=== PATIENT | female | born 1990 | race Caucasian/White ===

== ENCOUNTER 2016-12-14 23:20 | Inpatient (IN) | payer OTHER ==
[~2016-12-14] VITALS: Ht 154.9 cm; Wt 65.9 kg
[~2016-12-14 23:20] MED LIST: PREN1TAB62
[2016-12-14 23:57] VITALS: BP 120/76; PULSE 77; RESP 18
[2016-12-15] MEDS ORDERED: FERR325C PO
[2016-12-15] MEDS ORDERED: LACTATED RINGER'S 1,000 ML IV SCH (00:01)
[2016-12-15 00:30] VITALS: Ht 154.9 cm; Wt 65.9 kg
[2016-12-15] MEDS ORDERED: HYDROCODONE/APAP (5/325) TAB PO PRN ×2 (00:30→05:00)
[2016-12-15] MEDS ORDERED: OXYTOCIN 30 UNITS/LR 500 ML IV SCH ×2 (00:30)
[2016-12-15] MEDS ORDERED: LIDOCAINE 1% (MPF) 30 ML INJ INJ PRN (00:30)
[2016-12-15] MEDS ORDERED: LACTATED RINGER'S 1,000 ML IV PRN (00:30)
[2016-12-15] MEDS ORDERED: IBUPROFEN 600 MG TAB PO PRN (00:30)
[2016-12-15] MEDS ORDERED: OXYTOCIN 30 UNITS/LR 500 ML IV PRN ×3 (00:30→05:00)
[2016-12-15] MEDS ORDERED: MISOPROSTOL 200 MCG TAB PR PRN ×2 (00:30→05:00)
[2016-12-15] MEDS ORDERED: AMPICILLIN 2 GM/NS (PMX) 100 ML IV ONE (00:30)
[2016-12-15] MEDS ORDERED: METHYLERGONOVINE 0.2 MG INJ IM PRN ×2 (00:30→05:00)
[2016-12-15] MEDS ORDERED: BUTORPHANOL 2 MG INJ IV PRN ×2 (00:30)
[2016-12-15] MEDS ORDERED: CARBOPROST 250 MCG INJ IM PRN ×2 (00:30→05:00)
--- NOTE | 2016-12-15 00:46 | TRIAGE ---
OB Triage Datetime Report Generated by CPN: 12/15/2016 00:46 Datetime: 12/15/2016 23:52 Stage of : OB Triage Membrane Status: Ruptured Membranes Ruptured Date/Time: 12/14/2016 23:10 Membranes Rupture Method: Spontaneous Amniotic Fluid Color: Light Meconium Amniotic Fluid Amount: Moderate Amniotic Fluid Odor: None Datetime: 12/15/2016 00:45 Time of Arrival: 12/15/2016 00:30 EGA: 39.0 Arrived By: Stretcher Arrived From: OB triage Datetime: 12/15/2016 00:26 Stage of : OB Triage Labor Evaluation Frequency: 2-5 Monitor Mode: Palpation Duration (sec)2399: 40-70 Quality: Mild Resting Tone [place]: Relaxed Heart Rate FHR Baseline Rate: 150 Monitor Mode: External US Variability: Moderate 6-25 bpm Accelerations: 15X15 Decelerations: None; Variable Category: Category II Datetime: 12/14/2016 23:52 Membrane Status: Ruptured Datetime: 12/14/2016 23:49 Stage of : OB Triage Datetime: 12/14/2016 23:45 Assessment Type: Triage Maternal Assessment Level of Consciousness: Fully Conscious DTR's/Clonus: DTRs 2+; No Clonus Headache: Denies Blurred Vision: No Respiratory Effort: Unlabored Breath Sounds, Left: Clear and Equal Breath Sounds, Right: Clear and Equal Nausea/Vomiting: Denies RUQ Epigastric Pain: Denies Lower Extremities Edema: Bilateral Lower Extremities Degree: 1+ Upper Extremities Edema: None Degree: None Facial Edema: None Fall Risk Assessment History of Falling: (0) No Secondary Diagnosis: (15) Yes Ambulatory Aid: (0) Bedrest/Nurse Assist IV Therapy: (0) No Gait: (0) Normal/Bedrest/Immobile Mental Status: (0) Oriented to Own Ability Fall Score: 15 Fall Risk Score Definition: No Risk: No action required Datetime: 12/14/2016 23:43 Time of Arrival: 12/14/2016 23:18 EGA: 38.6 Arrived By: Wheelchair Arrived From: Home Chief Complaint: ROM@ 2110, [facility] SINCE 1899 Movement: Present Contractions: Regular Time Contractions Began: 12/14/2016 19:00 Contractions: Q 3-5 Rupture of Membranes: Ruptured Vaginal Bleeding: None Vaginal Discharge: Denies Recent Sexual Intercouse: Denies Abdominal Trauma: Not Applicable Patient Complaints: Contractions Initial Plan: VS, EFM, SVE, Datetime: 12/14/2016 23:39 Vaginal Exam Dilatation (cms): 3.5 Effacement (%): 50 Station: -2 Exam By: Shady HUERTAS Vaginal Bleeding: None Cervix, Consistency: Moderate Cervix, Position: Posterior Presentation 'A': Cephalic Datetime: 12/14/2016 23:33 Monitor Mode: External Contraction Comments: APPLIED Monitor Mode: External US Comments: APPLIED
[2016-12-15 01:26] LABS: BASOPHILS % 0.2 % (0.0-2.0); EOSINOPHILS # 0.1 10^3/ul (0.0-0.5); EOSINOPHILS % 0.3 % (0.0-7.0); HEMATOCRIT 39.9 % (37.0-47.0); HEMOGLOBIN 13.9 g/dl (12.0-16.0); LYMPHOCYTES # 2.8 10^3/ul (0.8-2.9); LYMPHOCYTES % 17.5 % (15.0-51.0); MEAN CORPUSCULAR HEMOGLOBIN 29.4 pg (29.0-33.0); MEAN CORPUSCULAR HGB CONC 34.8 g/dl (32.0-37.0); MEAN CORPUSCULAR VOLUME 84.4 fl (82.0-101.0); MEAN PLATELET VOLUME 11.2 fl (7.4-10.4); MONOCYTE # 1.1 10^3/ul (0.3-0.9); MONOCYTES % 6.9 % (0.0-11.0); NEUTROPHIL # 12.1 10^3/ul (1.6-7.5); NEUTROPHILS % 74.5 % (39.0-77.0); PLATELET COUNT 264 10^3/UL (140-415); RED BLOOD COUNT 4.73 10^6/ul (4.20-5.40); RED CELL DISTRIBUTION WIDTH 17.7 % (11.5-14.5); WHITE BLOOD COUNT 16.2 10^3/ul (4.8-10.8)
[2016-12-15 02:05] LABS: INR 0.89; PT RATIO 0.9
[2016-12-15 02:06] LABS: PARTIAL THROMBOPLASTIN TIME 23.9 Sec (25.0-35.0)
[2016-12-15] MEDS ORDERED: AMPICILLIN 1 GM/NS (PMX) 50 ML IV SCH (04:30)
[2016-12-15] MEDS: LACTATED RINGER'S 1,000 ML IV* SCH ×3 (04:35→20:35)
--- NOTE | 2016-12-15 04:35 | LDN ---
Date/Time of Note Date/Time of Note DATE: 12/15/16 TIME: 04:33 Delivery Summary I called for precipitous delivery. Patient had been manged during her anteparrum course by Dr. Waddell Placenta Delivered: Spontaneously Meconium: Thick Episiotomy: No Perineal laceration: 1 Laceration repair: first degree perineal lac, repaired using 3-0 chromic Anesthesia type: None Estimated blood loss: 100 Sponge & Needle done & correct: Yes All needle counts correct: Yes Any foreign bodies felt in the: No Problems: Infant Delivery Information Sex Infant Sex: male Apgars 1 Minute: 8 5 Minute: 9 Suctioning Nose & mouth suctioned at anamaria: Yes Delee suction performed: Yes Umbilical Cord Umbilical cord with: 3 Vessels Cord presentations: nuchal cord Nuchal cord present X: 1 Cord Blood was obtained: Yes JACQUE DIAZ MD Dec 15, 2016 04:35
[2016-12-15 05:00] VITALS: BP 117/81; RESP 18
[2016-12-15] MEDS ORDERED: LANOLIN 7 GM TUBE TOP PRN (05:00)
[2016-12-15] MEDS ORDERED: WITCH HAZEL/GLYCERIN PAD PR PRN (05:00)
[2016-12-15] MEDS ORDERED: ONDANSETRON 4 MG INJ IV PRN (05:00)
[2016-12-15] MEDS ORDERED: DIPHENHYDRAMINE 25 MG CAP PO PRN (05:00)
[2016-12-15] MEDS ORDERED: ZOLPIDEM 5 MG TAB PO PRN (05:00)
[2016-12-15] MEDS ORDERED: ACETAMINOPHEN 325 MG TAB PO PRN (05:00)
[2016-12-15] MEDS: IBUPROFEN 600 MG TAB PO SCH ×3 (06:00→18:00)
[2016-12-15 08:00] VITALS: BP 113/69; PULSE 70; RESP 18
[2016-12-15] MEDS: SENNA/DOCUSATE NA (8.6MG/50MG) TAB PO SCH ×2 (09:00→21:29)
[2016-12-15 10:34] LABS: HEMATOCRIT 37.4 % (37.0-47.0); HEMOGLOBIN 12.9 g/dl (12.0-16.0)
[2016-12-15 12:00] VITALS: BP 100/54; PULSE 78; RESP 18
--- NOTE | 2016-12-15 13:19 | RADRPT ---
PROCEDURE: US Lower extremity Venous. CLINICAL INDICATION: Bilateral leg swelling TECHNIQUE: Multiple sonographic images of the bilateral lower extremity deep venous system was obt ained utilizing guillen scale, color-flow, compressive sonography and doppler imaging with augmentation . COMPARISON: None. FINDINGS: There is normal compressibility and flow within the bilateral common femoral, femoral and popliteal veins. Visualized portions of the calf veins are patent. IMPRESSION: No sonographic evidence for deep venous thrombosis. RPTAT:AAJJ Physician Chris Date Time Electronically viewed and signed by Physician Chris on 12/15/2016 13:18 /
[2016-12-15 16:00] VITALS: BP 97/50; PULSE 78; RESP 16
[2016-12-15 19:55] VITALS: BP 102/60; PULSE 80; RESP 18
[2016-12-16] MEDS: IBUPROFEN LIQUID (PED) 20 MG/ML CUP PO SCH ×5 (00:49→23:46)
[2016-12-16 04:15] VITALS: BP 95/55; PULSE 72; RESP 18
--- NOTE | 2016-12-16 08:19 | PD.PPDC ---
CASE REPAIRER Discharge Instruction Diagnosis Final Diagnosis: Term .NVD Condition Patient Condition: Good Diet Diet: Resume Regular Diet Activity/Restrictions Activity: Normal Activity May Shower Restrictions: No Lifting No Sexual Activity Nothing in the Vagina No [place] Wound/Drain Care Instructions Wound/Drain Care Instructions: Keep clean and dry Follow-up Follow-up with Physician: 2, Week/Weeks Return to clinic for PROCESS CONTROL ENGINEER Instructions: Fever greater than 101 Worsening abdominal pain Excessive Vaginal Bleeding Unable to tolerate diet OB Instructions: Depression Surgical Instructions: Incisional Drainage Incisional Redness MAURO BRAVO MD Dec 16, 2016 08:19
--- NOTE | 2016-12-16 08:21 | DS ---
Date/Time of Note Date/Time of Note DATE: 12/16/16 TIME: 08:20 Obstetrical Discharge Record Final Diagnosis Final Diagnosis: Term delivered Vaginal Delivery Obstetrical Delivery: Spontaneous Condition on Discharge Physical Assessment Last Vitals: Afebrile.Stable Voiding: Yes Bowel Movement: Yes Breast: Soft, non-tender Fundus: Firm Calf Tenderness: No Patient Condition: Good MAURO BRAVO MD Dec 16, 2016 08:21
[2016-12-16 08:55] VITALS: BP 100/56; PULSE 71; RESP 19
[2016-12-16] MEDS: SENNA/DOCUSATE NA (8.6MG/50MG) TAB PO SCH ×2 (09:02→20:58)
[2016-12-16 11:06] LABS: BASOPHILS % 0.2 % (0.0-2.0); EOSINOPHILS # 0.1 10^3/ul (0.0-0.5); EOSINOPHILS % 0.8 % (0.0-7.0); HEMATOCRIT 36.8 % (37.0-47.0); HEMOGLOBIN 13.1 g/dl (12.0-16.0); LYMPHOCYTES # 2.3 10^3/ul (0.8-2.9); LYMPHOCYTES % 12.5 % (15.0-51.0); MEAN CORPUSCULAR HEMOGLOBIN 30.5 pg (29.0-33.0); MEAN CORPUSCULAR HGB CONC 35.6 g/dl (32.0-37.0); MEAN CORPUSCULAR VOLUME 85.8 fl (82.0-101.0); MEAN PLATELET VOLUME 10.9 fl (7.4-10.4); MONOCYTE # 1.1 10^3/ul (0.3-0.9); MONOCYTES % 6.1 % (0.0-11.0); NEUTROPHIL # 14.6 10^3/ul (1.6-7.5); NEUTROPHILS % 79.9 % (39.0-77.0); PLATELET COUNT 184 10^3/UL (140-415); RED BLOOD COUNT 4.29 10^6/ul (4.20-5.40); RED CELL DISTRIBUTION WIDTH 17.9 % (11.5-14.5); WHITE BLOOD COUNT 18.3 10^3/ul (4.8-10.8)
[2016-12-16] MEDS ORDERED: IBUPROFEN 600 MG TAB PO SCH (12:00)
[2016-12-16 16:30] VITALS: BP 111/73; PULSE 77; RESP 20
[2016-12-16 19:30] VITALS: BP 109/72; PULSE 74; RESP 17
[2016-12-17 04:10] VITALS: BP 99/52; PULSE 81; RESP 17
[2016-12-17] MEDS: IBUPROFEN LIQUID (PED) 20 MG/ML CUP PO SCH ×2 (05:36→12:00)
[2016-12-17 06:34] LABS: BASOPHIL # 0.1 10^3/ul (0.0-0.1); BASOPHILS % 0.3 % (0.0-2.0); EOSINOPHILS # 0.4 10^3/ul (0.0-0.5); EOSINOPHILS % 2.1 % (0.0-7.0); HEMOGLOBIN 13.2 g/dl (12.0-16.0); LYMPHOCYTES % 15.9 % (15.0-51.0); MEAN CORPUSCULAR HEMOGLOBIN 29.4 pg (29.0-33.0); MEAN CORPUSCULAR HGB CONC 33.8 g/dl (32.0-37.0); MEAN CORPUSCULAR VOLUME 86.9 fl (82.0-101.0); MEAN PLATELET VOLUME 11.7 fl (7.4-10.4); MONOCYTE # 1.2 10^3/ul (0.3-0.9); MONOCYTES % 6.6 % (0.0-11.0); NEUTROPHILS % 74.3 % (39.0-77.0); PLATELET COUNT 181 10^3/UL (140-415); RED BLOOD COUNT 4.49 10^6/ul (4.20-5.40); RED CELL DISTRIBUTION WIDTH 17.7 % (11.5-14.5); WHITE BLOOD COUNT 18.8 10^3/ul (4.8-10.8)
[2016-12-17 08:00] VITALS: BP 108/77; PULSE 73; RESP 18
[2016-12-17] MEDS ORDERED: DIPHTH/TET/ACEL PERTUSS (ADULT) 0.5 ML VIAL IM* ONE (09:00)
[2016-12-17] MEDS ORDERED: MEASLES,MUMPS,RUBELLA VACCINE INJ SC* ONE (09:00)
[2016-12-17] MEDS ORDERED: VARICELLA VACCINE LIVE/PF 1,350 UNIT/0.5 ML ML SC* ONE (09:00)
[2016-12-17] MEDS: SENNA/DOCUSATE NA (8.6MG/50MG) TAB PO SCH (09:00)
--- NOTE | 2016-12-17 13:33 | QN ---
Documentation Comment here for called for result of WBC was higher than previous result [id number] no c/o any sx except afterpain CVA Lt /? tenderness Rt neg for tendrness fundus non tender lochia min P repeat CBC U/A LOKI KIM MD Dec 17, 2016 13:33
[2016-12-17 13:35] LABS: BASOPHIL # 0.1 10^3/ul (0.0-0.1); BASOPHILS % 0.3 % (0.0-2.0); EOSINOPHILS # 0.4 10^3/ul (0.0-0.5); EOSINOPHILS % 2.1 % (0.0-7.0); HEMATOCRIT 37.9 % (37.0-47.0); HEMOGLOBIN 13.1 g/dl (12.0-16.0); LYMPHOCYTES % 10.9 % (15.0-51.0); MEAN CORPUSCULAR HEMOGLOBIN 29.9 pg (29.0-33.0); MEAN CORPUSCULAR HGB CONC 34.6 g/dl (32.0-37.0); MEAN CORPUSCULAR VOLUME 86.5 fl (82.0-101.0); MEAN PLATELET VOLUME 11.1 fl (7.4-10.4); MONOCYTE # 0.9 10^3/ul (0.3-0.9); MONOCYTES % 4.8 % (0.0-11.0); NEUTROPHIL # 14.8 10^3/ul (1.6-7.5); NEUTROPHILS % 81.2 % (39.0-77.0); PLATELET COUNT 189 10^3/UL (140-415); RED BLOOD COUNT 4.38 10^6/ul (4.20-5.40); RED CELL DISTRIBUTION WIDTH 17.8 % (11.5-14.5); WHITE BLOOD COUNT 18.2 10^3/ul (4.8-10.8)
[2016-12-17 15:00] VITALS: BP 110/76; PULSE 76; RESP 16
[2016-12-17 15:01] LABS: ADD UMIC YES; UR ASCORBIC ACID NEGATIVE (NEGATIVE); UR BILIRUBIN (Dip) NEGATIVE (NEGATIVE); UR BLOOD (Dip) 2+ mg/dL (NEGATIVE); UR CLARITY CLEAR (CLEAR); UR COLOR STRAW (YELLOW); UR GLUCOSE (Dip) NEGATIVE (NEGATIVE); UR KETONES (Dip) NEGATIVE (NEGATIVE); UR LEUKOCYTE ESTERASE (Dip) NEGATIVE Leu/ul (NEGATIVE); UR NITRITE (Dip) NEGATIVE (NEGATIVE); UR RBC 13 /HPF (0-5); UR SPECIFIC GRAVITY (Dip) 1.011 (1.003-1.030); UR TOTAL PROTEIN (Dip) NEGATIVE (NEGATIVE); UR UROBILINOGEN (Dip) NEGATIVE (NEGATIVE)
[2016-12-18] MEDS ORDERED: INFLUENZA VIRUS VACCINE 0.5 ML SYG IM* ONE (09:00)
== END 2016-12-17 15:31 | disposition home or self-care (01) | DRG 775 ==
LOC: OBT 23:20 → L-D 23:20 → OBT 23:55 → L-D 12-15 00:36 → PP1 12-15 05:00
PROVIDERS: ADMIT Specialist; ATTEND Specialist
PROC: 10E0XZZ Delivery of Products of Conception, External Approach (ICD-10-PCS; principal; 2016-12-15)
PROC: 0HQ9XZZ Repair Perineum Skin, External Approach (ICD-10-PCS; 2016-12-15)
DX: O70.0 First degree perineal laceration during delivery (principal); Z37.0 Single live birth; Z3A.39 39 weeks gestation of pregnancy
CPT/HCPCS: 81001; 85014; 85018; 85025; 85610; 85730; 86592; 86850; 86885; 86900; 86901; 87086; 87340; 88307; 90715; 90716; 93970; G0463; J0290; J2590; J2790; J7120